=== PATIENT | female | born 1950 | race Caucasian/White ===

== ENCOUNTER 2021-07-05 10:03 | Emergency (ER) | payer BC, MEDICARE ==
[~2021-07-05] VITALS: Ht 162.6 cm; Wt 68.0 kg
[2021-07-05] MEDS ORDERED: POTASSIUM GLUCO99 M2 PO (10:17)
[2021-07-05] MEDS ORDERED: AZO CRANBERRY1 EAC1 PO (10:17)
[2021-07-05] MEDS ORDERED: MULTIVITAMIN1 EACH PO (10:17)
[2021-07-05] MEDS ORDERED: VITAMIN D350 MC4 PO (10:18)
[2021-07-05] MEDS ORDERED: CALCIUM + D3 E1 EACH PO (10:18)
[2021-07-05] MEDS ORDERED: STOOL SOFTENER100 MG PO (10:19)
[2021-07-05] MEDS ORDERED: METFORMIN HCL500 M3 PO (10:19)
[2021-07-05] MEDS ORDERED: IRON325 M1 PO (10:19)
[2021-07-05] MEDS ORDERED: LISINOPRIL10 MG PO (10:19)
[2021-07-05] MEDS ORDERED: EUTHYROX112 MCG PO (10:19)
[2021-07-05] MEDS ORDERED: PROAIR HFA8.5 GM INH (10:20)
[2021-07-05] MEDS ORDERED: SEREVENT DISKU50 MCG INH (10:20)
[2021-07-05] MEDS ORDERED: FOSAMAX 70 MG T70 MG PO (10:20)
[2021-07-05 10:23] VITALS: BP 170/87
== END 2021-07-05 10:23 | disposition home or self-care (01) ==
LOC: M.ERS 10:03
DX: K62.5 Hemorrhage of anus and rectum (principal); E03.9 Hypothyroidism, unspecified; J45.909 Unspecified asthma, uncomplicated; G43.909 Migraine, unspecified, not intractable, without status migrainosus; K21.9 Gastro-esophageal reflux disease without esophagitis; E11.9 Type 2 diabetes mellitus without complications; I10 Essential (primary) hypertension; Z90.710 Acquired absence of both cervix and uterus; Z79.899 Other long term (current) drug therapy; Z88.0 Allergy status to penicillin

== ENCOUNTER 2021-07-11 18:36 | Inpatient (IN) | payer BC, MEDICARE ==
[~2021-07-11] VITALS: Ht 162.6 cm; Wt 69.7 kg
--- NOTE | ~2021-07-11 | PROC ---
[address] [address] PROCEDURE REPORT Name: MOLLY DANIELS Room: [address] ADM IN M.R.#: [id number] Admission: 07/11/21 Attend Phys: Gypsy Solis MD Discharge: Date of : 46 Report #: [id number] THIS REPORT FOR: cc: Santos Salas Vincent R. DO [facility],Medical Records Staff ~ For GI report, please see the Provation report in Perceptive 7 content. By: [id number] Records Staff VIANNEY /NIKOLE
--- NOTE | ~2021-07-11 | PROC ---
[address] [address] PROCEDURE REPORT Name: MOLLY DANIELS Room: [address] ADM IN M.R.#: [id number] Admission: 07/11/21 Attend Phys: Gypsy Solis MD Discharge: Date of : 46 Report #: [id number] THIS REPORT FOR: cc: Santos Salas Vincent R. DO [facility],Medical Records Staff ~ For GI report, please see the Provation report in Perceptive 7 content. By: [id number] Records Staff VIANNEY /NIKOLE
[~2021-07-11 18:36] MED LIST changes: -ASA81BEC PO; -OMEPRAZOLE40 MG PO
[2021-07-11 18:57] VITALS: BP 172/74
[2021-07-11 19:26] LABS: ABSOLUTE BASOPHILS 0.1 thou/uL (0.0-0.2); ABSOLUTE EOSINOPHILS 0.1 thou/uL (0.0-0.7); ABSOLUTE LYMPHOCYTES 2.1 thou/uL (0.8-5.3); ABSOLUTE MONOCYTES 0.5 thou/uL (0.0-1.2); ABSOLUTE NEUTROPHILS 2.7 thou/uL (1.6-8.1); EOSINOPHILS 2.6 %; HEMATOCRIT 30.3 % (37.0-47.0); HEMOGLOBIN 10.3 gm/dL (12.0-15.0); LYMPHOCYTES 37.5 %; MCH 30.2 pg (26.0-34.0); MCV 88.9 fL (80.0-100.0); MPV 8.4 fl. (7.2-11.1); NUCLEATED RBCS 0 /100WBC; PLATELET COUNT* 258 thou/uL (150-400); POLYS 49.9 %; RBC 3.41 mil/uL (4.20-5.00); RDW-CV 13.9 % (10.5-14.5); WBC 5.5 thou/uL (4.0-11.0)
[2021-07-11 19:36] LABS: CALCIUM 8.8 mg/dL (8.5-10.1); POTASSIUM 4.5 mmol/L (3.5-5.1)
[2021-07-11 19:41] LABS: ALBUMIN 3.4 g/dL (3.4-5.0); TOTAL BILIRUBIN 0.2 mg/dL (<0.1-1.0); TOTAL PROTEIN 6.6 g/dL (6.4-8.2)
[2021-07-11 19:54] LABS: PROTIME 10.1 Seconds (9.20-11.50)
[2021-07-11 20:18] LABS: URINE BILIRUBIN NEGATIVE (Negative); URINE BLOOD 1+ (Negative); URINE COLOR YELLOW; URINE GLUCOSE-RANDOM NEGATIVE (Negative); URINE KETONES NEGATIVE (Negative); URINE LEUKOCYTES-REFLEX NEGATIVE (Negative); URINE NITRITE-REFLEX NEGATIVE (Negative); URINE PROTEIN NEGATIVE (Negative); URINE UROBILINOGEN 0.2 E.U./dl (0.2-1.0)
[2021-07-11 20:20] LABS: URINE CLARITY HAZY
[2021-07-11 20:28] LABS: BACTERIA-REFLEX None Seen /HPF (None Seen); CASTS None Seen /LPF (None Seen); CRYSTALS None Seen /LPF (None Seen); SQUAMOUS 0-3 Few /LPF (0-3); URINE RBC 0-2 Rare /HPF (0-2); URINE WBC-REFLEX None Seen /HPF (0-5)
[2021-07-11 22:36] LABS: HEMATOCRIT 26.9 % (37.0-47.0); MCH 29.8 pg (26.0-34.0); MCHC 33.6 g/dL (28.0-37.0); MCV 88.8 fL (80.0-100.0); MPV 8.2 fl. (7.2-11.1); RBC 3.03 mil/uL (4.20-5.00); WBC 6.5 thou/uL (4.0-11.0)
[2021-07-12] VITALS (8 sets, daily range): BP systolic 134–156; BP diastolic 57–72
[2021-07-12 01:11] LABS: HEMATOCRIT 28.2 % (37.0-47.0); HEMOGLOBIN 9.3 gm/dL (12.0-15.0)
[2021-07-12] MEDS ORDERED: ASA81BEC PO (01:23)
[2021-07-12] MEDS ORDERED: OMEPRAZOLE40 MG PO (01:24)
[2021-07-12 07:25] LABS: ABSOLUTE BASOPHILS 0.1 thou/uL (0.0-0.2); ABSOLUTE EOSINOPHILS 0.1 thou/uL (0.0-0.7); ABSOLUTE LYMPHOCYTES 1.4 thou/uL (0.8-5.3); ABSOLUTE MONOCYTES 0.5 thou/uL (0.0-1.2); BASOPHILS 1.1 %; EOSINOPHILS 2.8 %; HEMATOCRIT 27.3 % (37.0-47.0); HEMOGLOBIN 9.1 gm/dL (12.0-15.0); LYMPHOCYTES 27.5 %; MCH 29.7 pg (26.0-34.0); MCHC 33.3 g/dL (28.0-37.0); MCV 89.1 fL (80.0-100.0); MONOCYTES 9.3 %; MPV 8.5 fl. (7.2-11.1); NUCLEATED RBCS 0 /100WBC; PLATELET COUNT* 226 thou/uL (150-400); POLYS 59.3 %; RBC 3.06 mil/uL (4.20-5.00); RDW-CV 14.3 % (10.5-14.5)
[2021-07-12 07:33] LABS: PROTIME 10.5 Seconds (9.20-11.50)
[2021-07-12 07:58] LABS: ALBUMIN 2.8 g/dL (3.4-5.0); CALCIUM 7.8 mg/dL (8.5-10.1); POTASSIUM 3.9 mmol/L (3.5-5.1); TOTAL BILIRUBIN 0.2 mg/dL (<0.1-1.0); TOTAL PROTEIN 5.6 g/dL (6.4-8.2)
--- NOTE | 2021-07-12 08:03 | NUR ---
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 SHE IS ABLE TO COMMUNICATE HER NEEDS TO STAFF EFFECTIVELY. SHE HAS DENIED THE NEED FOR PAIN MEDICAITON UP TO 0700 THIS MORNING. EGD THIS MORNING.
--- NOTE | 2021-07-12 14:35 | EKG ---
[place] [address] ELECTROCARDIOGRAM REPORT Name: MOLLY DANIELS Room: [address] ADM IN M.R.#: [id number] Admission: 07/11/21 Attend Phys: Gypsy Solis, Discharge: Date of : 46 Date of Service: 07/11/211924 Report #: [id number] THIS REPORT FOR: //name// [facility] ED Test Date: 2021-07-11 Test Time: 19:25:22 Pat Name: MOLLY FRANCES Department: Room: [facility] Gender: F Dog Groomer: RJ : 1950 Requested By: Delores Merida Order Number: [id number] MD: Chris Aaron Measurements Intervals [place] Rate: 81 P: 68 [place]: 145 QRS: -28 QRSD: 87 T: 35 QT: 372 QTc: 432 Interpretive Statements Sinus rhythm Borderline left axis deviation No previous ECG available for comparison Electronically Signed On 07-12-2021 14:35:13 CAR BODY INSPECTOR by Chris Aaron [email or web address] <ELECTRONICALLY SIGNED> By: Chris Aaron MD, FACC 07/12/21 1435 24 24 Chris Aaron MD, [facility] /EPI
--- NOTE | 2021-07-12 19:04 | NUR ---
PT HAD EGD TODAY-REFER TO RESULTS. PLAN FOR COLONOSCOPY IN AM 07/13. NPO AFTER MIDNIGHT. PT TOLERATED BOWEL PREP TODAY FAIRLY WELL-COMPLETED ALL OF MIRALAX. DENIES ANY PAIN OR SHORTNESS OF BREATH. TRACING SR ON THE RADIOLOGICAL TECHNICIAN. ON RA SAT UPPER 90'S. PT UP SBA TO BATHROOM. IVF AND IV PROTONIX INFUSING PER EMAR. AM ASSESSMENT CHARTED. MEDICATIONS PER OCT. PT REPOSITIONS SELF. HOURLY ROUNDING OBSERVED. BED IN LOW POSITION. CALL LIGHT WITHIN REACH. WILL CONTINUE PLAN OF CARE.
[2021-07-13 04:00] VITALS: BP 121/67
[2021-07-13 04:47] LABS: HEMATOCRIT 25.6 % (37.0-47.0); HEMOGLOBIN 8.4 gm/dL (12.0-15.0); MCH 29.7 pg (26.0-34.0); MCV 89.9 fL (80.0-100.0); MPV 8.3 fl. (7.2-11.1); RBC 2.84 mil/uL (4.20-5.00); RDW-CV 14.1 % (10.5-14.5)
[2021-07-13 05:12] LABS: ALBUMIN 2.6 g/dL (3.4-5.0); CALCIUM 7.7 mg/dL (8.5-10.1); CREATININE 0.9 mg/dL (0.6-1.3); MAGNESIUM 1.9 mg/dL (1.8-2.4); POTASSIUM 3.7 mmol/L (3.5-5.1); TOTAL BILIRUBIN 0.2 mg/dL (<0.1-1.0); TOTAL PROTEIN 5.2 g/dL (6.4-8.2)
[2021-07-13 07:50] VITALS: BP 142/71
[2021-07-13 08:00] VITALS: BP 142/71
--- NOTE | 2021-07-13 08:41 | NUR ---
PT IS ABLE TO COMMUNICATE HER NEEDS TO STAFF EFFECTIVELY. SHE HAS DENIED THE NEED FOR PAIN MEDICATION UP TO 0700 THIS MORNING. SHE HAS BEEN NPO SINCE MIDNIGHT FOR A LIKELY COLONOSCOPY THIS MORNING.
[2021-07-13 12:00] VITALS: BP 147/69
[2021-07-13 15:23] LABS: HEMATOCRIT 27.9 % (37.0-47.0); HEMOGLOBIN 9.3 gm/dL (12.0-15.0)
[2021-07-13 16:00] VITALS: BP 137/57
--- NOTE | 2021-07-13 18:23 | NUR ---
PT HAD COLONOSCOPY TODAY-REFER TO RESULTS. PT HAS REMAINED FREE FROM ANY BLOODY STOOLS TODAY-HGB TRENDING UP-9.3 THIS AFTERNOON. PT HAD GI BLEED/RBC SCAN THIS AFTERNOON-NEGATIVE, REFER TO RESULTS. IVF. DENIES ANY PAIN OR SHORTNESS OF BREATH. PROTONIX TRANSITIONED TO PO. AM ASSESSMENT CHARTED. MEDS PER MAR. CALL LIGHT WITHIN REACH. HOURLY ROUNDING OBSERVED. BED IN LOW POSITION. WILL CONTINUE PLAN OF CARE.
[2021-07-13 20:59] VITALS: BP 124/70
[2021-07-13 21:11] LABS: HEMATOCRIT 27.3 % (37.0-47.0)
[2021-07-14] VITALS: BP 119/48
[2021-07-14 04:00] VITALS: BP 117/45
[2021-07-14 04:45] LABS: ABSOLUTE EOSINOPHILS 0.1 thou/uL (0.0-0.7); ABSOLUTE LYMPHOCYTES 1.2 thou/uL (0.8-5.3); ABSOLUTE MONOCYTES 0.5 thou/uL (0.0-1.2); ABSOLUTE NEUTROPHILS 2.7 thou/uL (1.6-8.1); BASOPHILS 0.7 %; EOSINOPHILS 2.3 %; HEMATOCRIT 24.9 % (37.0-47.0); HEMOGLOBIN 8.3 gm/dL (12.0-15.0); LYMPHOCYTES 26.9 %; MCH 29.9 pg (26.0-34.0); MCHC 33.1 g/dL (28.0-37.0); MCV 90.2 fL (80.0-100.0); MONOCYTES 11.4 %; MPV 8.4 fl. (7.2-11.1); NUCLEATED RBCS 0 /100WBC; PLATELET COUNT* 201 thou/uL (150-400); POLYS 58.7 %; RBC 2.76 mil/uL (4.20-5.00); WBC 4.5 thou/uL (4.0-11.0)
[2021-07-14 04:46] LABS: CALCIUM 7.8 mg/dL (8.5-10.1); CREATININE 0.9 mg/dL (0.6-1.3); POTASSIUM 3.3 mmol/L (3.5-5.1)
[2021-07-14 08:00] VITALS: BP 131/62
--- NOTE | 2021-07-14 09:28 | NUR ---
PT IS ABLE TO COMMUNICATE HER NEEDS TO STAFF EFFECTIVELY. SHE HAS DENIED THE NEED FOR PAIN MEDICATION UP TO 0700 TODAY. 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 POSSIBLE REPEAT TAGGED RBC SCAN TODAY. POSSIBLE DISCHARGE SOON.
--- NOTE | 2021-07-14 09:49 | CON ---
[address] [address] CONSULTATION Name: MOLLY DANIELS Room: [address] IN M.R.#: [id number] Admission: 07/11/21 Attend Phys: Gypsy Solis MD Discharge: Date of : 46 Report #: [id number] THIS REPORT FOR: cc: Santos Salas,Roberto Renee DO ~ cc: GYPSY SOLIS MD, SANTOS SALAS DO DATE OF CONSULTATION: 07/12/2021 REFERRING PHYSICIAN: Gypsy Solis MD REASON FOR CONSULTATION: Melena. IMPRESSION: Melena with associated anemia -- evaluate for upper versus lower gastrointestinal bleeding. RECOMMENDATIONS: Since the patient has had some dark tarry stools and has a history of chronic acid reflux with intermittent nonsteroidal use, we will proceed with upper endoscopy today and make further recommendations thereafter. I have discussed plans with the patient and she is agreeable to same. HISTORY OF PRESENT ILLNESS: The patient is a very pleasant 71-year-old white female who presented to the Emergency Room 4-5 days ago with complaints of some dark tarry stools and some rectal bleeding and was found to be hemodynamically stable, so she was worked in for a colonoscopy this coming Wednesday. However, she was seen by her primary care provider who recommended she come to the Emergency Room and she is now here for the same. She has had continued problem with dark stools with some blood in her stools. She does have chronic acid reflux, which is well controlled with taking omeprazole once daily. She denies dysphagia, odynophagia postprandial pain or any problems noted with her bowels or bowel frequency. She underwent both upper and lower endoscopies by me back in 05/2018 with findings of a hiatal hernia and some mild inflammation in the stomach, which turned out to be negative for H. pylori. Her colonoscopy performed the same date revealed diverticular disease, scattered throughout the colon with some internal and external hemorrhoids. She has a family history of colon cancer. She is currently admitted to the hospital for further evaluation and treatment. ALLERGIES: PENICILLIN. CURRENT MEDICATIONS: Include cranberry extract, multivitamin, potassium, calcium with vitamin D, levothyroxine, lisinopril, docusate, ferrous sulfate, Fosamax, Serevent, aspirin, omeprazole, metformin, [place] [address] CONSULTATION Name: MOLLY DANIELS Room: [address]#: [id number] Admission: 07/11/21 Attend Phys: Gypsy Solis MD Discharge: Date of : 46 Report #: [id number] PAST MEDICAL HISTORY: Remarkable for underlying hypertension, diabetes, COPD, osteoporosis, hypothyroidism. She has had history of migraines. PAST SURGICAL HISTORY: Had previous hysterectomy, previous D and C in the past. SOCIAL HISTORY: The patient does not smoke or drink. She is . FAMILY HISTORY: Remarkable for colon cancer in a second-degree relative. PHYSICAL EXAMINATION: GENERAL: Pleasant 71-year-old white female who is awake and alert. Cardiopulmonary: Revealed regular rate and rhythm. LUNGS: Clear. ABDOMEN: Soft and nontender. No rebound or guarding noted. LABORATORY DATA: On admission revealed a white count of 5.5, hemoglobin 10.3, platelet count 258,000, MCV is 88.9 and RDW is 13.9. Her sodium 141, potassium 4.5, chloride 105, bicarbonate 29, her BUN is 14, creatinine 1.04, GFR 54. Total bilirubin 0.2, alkaline phosphatase 88, AST is 21, ALT 27, her albumin is 3.4. CT angiogram of the abdomen and pelvis without and with contrast suggests that there was a focal hyperdensity along the posterior wall of the stomach suspicious for an area of active bleeding. Diffusely scattered diverticular disease was noted throughout without diverticulitis. No other abnormalities noted on CT scan of concern. DISCUSSION: At the present time, the patient has had some problem with GI bleeding. We will proceed with upper endoscopy today and make further recommendations thereafter. I discussed plans with the patient as well and she is agreeable to same. <ELECTRONICALLY SIGNED> By: Roberto Castañeda DO 07/14/21 0949 0724 [id number] Castañeda DO /nt
--- NOTE | 2021-07-14 10:38 | NUR ---
CM ASSESSMENT: PT A&O, INDEPENDENT WITH ADL'S, AND ACTIVE. PT RESIDES AT HOME WITH SPOUSE AND 2 CHILDREN. PT USES 0 DME, BUT INFORMS THAT SHE OWNS A WHEELCHAIR, AND WALKER. PT HAS 0 HX OF HH OR SNF. NO CM D/C PLANNING NEEDS ANTICIPATED. CM WILL REMAIN AVAILABLE TO ASSIST AND FOLLOW NEEDED.
[2021-07-14 12:00] VITALS: BP 126/53
[2021-07-14 16:00] VITALS: BP 126/62
[2021-07-14 20:29] VITALS: BP 125/56
[2021-07-15] VITALS: BP 117/54
[2021-07-15 04:00] VITALS: BP 111/45
[2021-07-15 04:25] LABS: HEMATOCRIT 24.9 % (37.0-47.0); HEMOGLOBIN 8.4 gm/dL (12.0-15.0); MCH 30.1 pg (26.0-34.0); MCHC 33.9 g/dL (28.0-37.0); MCV 88.9 fL (80.0-100.0); MPV 8.1 fl. (7.2-11.1); RBC 2.79 mil/uL (4.20-5.00); RDW-CV 14.3 % (10.5-14.5); WBC 4.9 thou/uL (4.0-11.0)
[2021-07-15 05:15] LABS: ALBUMIN 2.6 g/dL (3.4-5.0); CALCIUM 8.1 mg/dL (8.5-10.1); MAGNESIUM 1.8 mg/dL (1.8-2.4); POTASSIUM 3.9 mmol/L (3.5-5.1); TOTAL BILIRUBIN 0.2 mg/dL (<0.1-1.0); TOTAL PROTEIN 5.3 g/dL (6.4-8.2)
--- NOTE | 2021-07-15 08:05 | NUR ---
PT IS ABLE TO COMMUNICATE HER NEEDS TO STAFF EFFECTIVELY. SHE HAS DENIED THE NEED FOR PAIN MEDICATION UP TO 0700 THIS MORNING. PT HAS DENIED ANY BLOODY STOOLS OVERNIGHT. POSSIBLE DISCHARGE TODAY.
[2021-07-15 08:20] VITALS: BP 120/65
[2021-07-15 11:07] VITALS: BP 120/65
[2021-07-15 11:40] VITALS: BP 132/62
[2021-07-15 12:23] VITALS: BP 120/65
--- NOTE | 2021-07-15 12:23 | NUR ---
PLAN FOR THE PT TO D/C HOME TODAY WITH SELF-CARE.NO CM D/C PLANNING NEEDS ANTICIPATED. CM WILL REMAIN AVAILABLE TO ASSIST AND FOLLOW NEEDED.
--- NOTE | 2021-07-15 13:12 | NUR ---
ASSUMED CARE OF PT AT 0730. PT A&0X4, DENIES ANY PAIN OR SHORTNESS OF BREATH AT THIS TIME. PT DENIES ANY BLOODY STOOLS. TRACING SR ON THE GLOVE MACHINE OPERATOR. ON RA SAT UPPER 90'S. PT UP AD BREONNA IN ROOM. HGB TRENDING UP. REFER TO RESULTS. DISCHARGE ORDERS RECEIVED. DISCHARGE INSTRUCTIONS, CARE NOTES AND FOLLOW UP APPTS GIVEN TO PT. PT COMMUNICATES UNDERSTANDING OF DISCHARGE TEACHING. IV AND GLOVE MACHINE OPERATOR REMOVED. PT DISCHARGED WITH ALL BELONGINGS AND PAPERWORK VIA WHEELCHAIR WITH NURSING STAFF TO OWN PERSONAL VEHICLE.
== END 2021-07-15 13:15 | disposition home or self-care (01) | DRG 378 ==
LOC: M.ERS 18:36 → M.TBA-ER 20:15 → M.2W 20:15
PROVIDERS: Emergency Medicine; Internal Medicine Gastroenterology; Nurse Practitioner Family; ADMIT Internal Medicine; ATTEND Internal Medicine
PROC: 0DJ08ZZ Inspection of Upper Intestinal Tract, Via Natural or Artificial Opening Endoscopic (ICD-10-PCS; 2021-07-12)
PROC: 0DJD8ZZ Inspection of Lower Intestinal Tract, Via Natural or Artificial Opening Endoscopic (ICD-10-PCS; principal; 2021-07-13)
DX: K57.31 Diverticulosis of large intestine without perforation or abscess with bleeding (principal); E87.0 Hyperosmolality and hypernatremia; E87.8 Other disorders of electrolyte and fluid balance, not elsewhere classified; E03.9 Hypothyroidism, unspecified; J45.909 Unspecified asthma, uncomplicated; G43.909 Migraine, unspecified, not intractable, without status migrainosus; K64.4 Residual hemorrhoidal skin tags; M81.0 Age-related osteoporosis without current pathological fracture; K44.9 Diaphragmatic hernia without obstruction or gangrene; D64.9 Anemia, unspecified; I10 Essential (primary) hypertension; E11.9 Type 2 diabetes mellitus without complications; K21.9 Gastro-esophageal reflux disease without esophagitis; Z86.018 Personal history of other benign neoplasm; Z90.710 Acquired absence of both cervix and uterus; Z88.0 Allergy status to penicillin; Z79.899 Other long term (current) drug therapy; Z79.82 Long term (current) use of aspirin

== ENCOUNTER → 2021-07-11 | Outpatient (CLI) | payer BC, MEDICARE ==
[~2021-07-11] MED LIST: ASA81BEC PO; AZO CRANBERRY1 EAC1 PO; CALCIUM + D3 E1 EACH PO; EUTHYROX112 MCG PO; FOSAMAX 70 MG T70 MG PO; IRON325 M1 PO; LISINOPRIL10 MG PO; METFORMIN HCL500 M3 PO; MULTIVITAMIN1 EACH PO; OMEPRAZOLE40 MG PO; POTASSIUM GLUCO99 M2 PO; PROAIR HFA8.5 GM INH; SEREVENT DISKU50 MCG INH; STOOL SOFTENER100 MG PO; VITAMIN D350 MC4 PO
== END ==
LOC: M.LAB 09:52
PROVIDERS: ATTEND Internal Medicine Gastroenterology
DX: Z01.812 Encounter for preprocedural laboratory examination (principal); Z20.822 Contact with and (suspected) exposure to COVID-19